=== PATIENT | male | born 1990 | race Caucasian/White ===

== ENCOUNTER 2020-03-28 08:24 | Outpatient (CLI) | payer MEDICAID ==
[~2020-03-28] VITALS: Ht 177.8 cm; Wt 78.0 kg
[2020-03-28] MEDS ORDERED: OMEPRAZOLE20 M2 ORAL (08:39)
[2020-03-28 08:45] VITALS: BP 107/65
--- NOTE | 2020-03-28 10:00 | Consultation ---
DATE OF CONSULTATION: 03/28/2020 CHIEF COMPLAINT: GERD. HISTORY OF PRESENT ILLNESS: The patient is a 29-year-old male with complaint of right upper quadrant abdominal pain for over 15 years, had complete workup except for endoscopy. He had a CT scan, abdominal ultrasound, laboratory work did not . He had H. pylori test negative. Trial of omeprazole did not work exam, Zantac did not work so the patient is here for endoscopy. PAST MEDICAL HISTORY: GERD. PAST SURGICAL HISTORY: None. MEDICATIONS: 1. Omeprazole. 2. Zantac. FAMILY HISTORY: Grandmother had breast cancer. SOCIAL HISTORY: The patient denies any alcohol, but used to smoke which he quit, states he uses marijuana. ALLERGIES: No known drug allergies. REVIEW OF SYSTEMS: As stated in HPI. PHYSICAL EXAMINATION: VITAL SIGNS: Temperature 97, blood pressure 107/65, pulse is 57, respirations 20. HEENT: Normocephalic and atraumatic. Sclerae are anicteric. NECK: Supple. No evidence of obvious lymphadenopathy. CARDIOVASCULAR: Regular rate and rhythm. Plus S1 and S2. LUNGS: Clear to auscultation bilaterally. ABDOMEN: Positive bowel sounds. Soft and nontender. No rebound. No guarding. No peritoneal sign. EXTREMITIES: No cyanosis. No clubbing. No edema. ASSESSMENT AND PLAN: The patient is a 29-year-old male with chronic right upper abdominal pain with negative ultrasound, CT, labs, H. pylori test. No response to PPI. The patient would benefit from endoscopy. Plan to perform endoscopy when authorization is obtained. Meanwhile, we will try Carafate three times a day to see if that helps with his symptoms. Clayton Thomas M.D. DR: Pritesh JOB#: [id number] CC:
== END 2020-03-28 10:24 | disposition home or self-care (01) ==
LOC: PAN 08:24
DX: K21.9 Gastro-esophageal reflux disease without esophagitis (principal); Z79.899 Other long term (current) drug therapy; R10.11 Right upper quadrant pain; F12.90 Cannabis use, unspecified, uncomplicated
CPT/HCPCS: G0463